=== PATIENT | male | born 1970 | race African-American/Black ===

== ENCOUNTER 2019-06-17 09:48 | Emergency (ER) | payer BC ==
[2019-06-17 10:08] VITALS: BP 137/80
--- NOTE | 2019-06-17 10:24 | UC ---
Throat Pain/Nasal Kel HPI - HPI Summary HPI Summary: patient started 2 weeks ago with cold symps, is taking claritin D qd without relief. over past 48hours sinus pain, congestion has worsened, and L ear painful has thick PND, coughing over past 2-3 days and has had to use albuterol inhaler. - History of Current Complaint Chief Complaint: UCRespiratory Stated Complaint: URI Time Seen by Provider: 06/17/19 09:53 Hx Obtained From: Patient Onset/Duration: Gradual Onset Severity: Moderate Pain Intensity: 6 Cough: Nonproductive Associated Signs & Symptoms: Positive: Sinus Discomfort, Nasal Discharge. Negative: Hoarseness, Fever Related History: Seasonal Allergies - Allergies/Home Medications Allergies/Adverse Reactions: Allergies Allergy/AdvReac Type Severity Reaction Status Date / Time codeine Allergy See Comment Verified 06/17/19 10:08 Home Medications: Home Medications Albuterol HFA INHALER* [Ventolin HFA Inhaler*] 1 puff INH Q4H PRN 06/17/19 [ History Confirmed 06/17/19] Fluticasone Furoate [Flonase Sensimist] 27.5 mcg NA DAILY 06/17/19 [History Confirmed 06/17/19] PMH/Surg Hx/FS Hx/Imm Hx Previously Healthy: Yes Respiratory History: Asthma - Surgical History Surgical History: Yes Surgery Procedure, Year, and Place: t&a,tennis elbow release lt arm, benign cyst removed from rt chest nipple area. - Family History Known Family History: Positive: None - Social History Occupation: Employed Full-time Lives: With Family Alcohol Use: Occasionally Substance Use Type: None Smoking Status (MU): Never Smoked Tobacco Review of Systems All Other Systems Reviewed And Are Negative: Yes Constitutional: Positive: Negative Skin: Positive: Negative. Negative: Rash Eyes: Positive: Negative ENT: Positive: Ear Ache, Nasal Discharge, Sinus Congestion, Sinus Pain/ Tenderness. Negative: Sore Throat Respiratory: Positive: Cough. Negative: Shortness Of Breath Cardiovascular: Positive: Negative. Negative: Chest Pain Gastrointestinal: Positive: Negative Neurological: Positive: Negative. Negative: Headache Psychological: Positive: Negative Is Patient Immunocompromised?: No Physical Exam Triage Information Reviewed: Yes Appearance: Well-Appearing, No Pain Distress, Well-Nourished Vital Signs: Initial Vital Signs Temp 98.5 F 06/17/19 10:02 Pulse 75 06/17/19 10:02 Resp 18 06/17/19 10:02 BP 137/80 06/17/19 10:02 Pulse Ox 98 06/17/19 10:02 Vital Signs Reviewed: Yes Eyes: Positive: Conjunctiva Clear ENT: Positive: Pharynx normal, Nasal congestion, TM dull, Sinus tenderness. Negative: Hoarse voice Neck exam: Normal Neck: Positive: Supple, Nontender Respiratory Exam: Normal Respiratory: Positive: Lungs clear Cardiovascular Exam: Normal Cardiovascular: Positive: RRR Neurological Exam: Normal Neurological: Positive: Alert Psychological Exam: Normal Skin Exam: Normal Skin: Negative: Rashes Throat Pain/Nasal Course/Dx - Differential Dx/Diagnosis Differential Diagnosis/HQI/PQRI: Influenza, Sinusitis, Tonsillitis, URI Provider Diagnosis: Sinusitis Discharge ED - Sign-Out/Discharge Documenting (check all that apply): Patient Departure All imaging exams completed and their final reports reviewed: No Studies - Discharge Plan Condition: Good Disposition: HOME Prescriptions: Amoxicillin/Clavulanate TAB* [Augmentin TAB 875*] 875 mg PO BID #20 tab Patient Education Materials: Sinusitis (ED) Referrals: No Primary Care Phys,NOPCP [Primary Care Provider] - Additional Instructions: drink plenty of fluids and rest start antibiotic today and take as directed may still use Claritin D and ibuprofen return if no better 48hours - Billing Disposition and Condition Condition: GOOD Disposition: Home
== END 2019-06-17 10:30 | disposition home or self-care (01) ==
LOC: UCEAST 09:48
DX: J32.9 Chronic sinusitis, unspecified (principal); J45.909 Unspecified asthma, uncomplicated; R05 Cough; Z79.51 Long term (current) use of inhaled steroids; Z88.5 Allergy status to narcotic agent
CPT/HCPCS: 99202; G0463

== ENCOUNTER 2019-06-18 07:26 | Emergency (ER) | payer BC ==
[2019-06-18 07:38] VITALS: BP 140/75
--- NOTE | 2019-06-18 08:01 | UC ---
Lower Extremity/Ankle HPI - HPI Summary HPI Summary: Patient is a 48-year-old male with history of gout and asthma presenting with for R foot and R lower leg pain that he states he began to feel subtly yesterday afternoon but then was woken up at 4 AM this morning with severe pain that he states is worsening as the morning progresses. States he is hardly able to ambulate or apply any weight to that foot or leg. Describes the foot pain as sharp and stabbing that radiates up his calf and becomes an aching tightness. Patient states he does not know how else to describe it because he has not had anything like this before. Patient rates pain 10/10. Denies any injury or trauma. States all he did yesterday was "lie around." Denies swelling and bruising. Denies color change or rash. Denies numbness and tingling. Denies h/o DVT or blood clots. Patient states he was seen here a few days ago and is currently taking Augmentin for URI. Denies SOB and difficulty breathing. Denies chest pain. Patient has history of gout but states "this is nothing like gout." No other daily meds. - History of Current Complaint Chief Complaint: UCLowerExtremity Stated Complaint: FOOT AND LEG PAIN Onset/Duration: Gradual Onset, Lasting Hours Severity Initially: Mild Severity Currently: Severe Pain Intensity: 10 Pain Scale Used: 0-10 Numeric Aggravating Factor(s): Standing, Ambulation Alleviating Factor(s): Nothing - Allergies/Home Medications Allergies/Adverse Reactions: Allergies Allergy/AdvReac Type Severity Reaction Status Date / Time codeine Allergy See Comment Verified 06/18/19 08:53 PMH/Surg Hx/FS Hx/Imm Hx Respiratory History: Asthma - Surgical History Surgical History: Yes Surgery Procedure, Year, and Place: t&a,tennis elbow release lt arm, benign cyst removed from rt chest nipple area. - Family History Known Family History: Positive: None - Social History Alcohol Use: Occasionally Substance Use Type: None Smoking Status (MU): Never Smoked Tobacco Review of Systems All Other Systems Reviewed And Are Negative: Yes Constitutional: Positive: Negative. Negative: Fever, Chills, Fatigue Skin: Positive: Negative. Negative: Rash, Bruising ENT: Positive: Sinus Congestion Respiratory: Positive: Negative. Negative: Shortness Of Breath, Cough Cardiovascular: Positive: Negative. Negative: Palpitations, Chest Pain Gastrointestinal: Positive: Negative. Negative: Abdominal Pain, Vomiting, Nausea Motor: Positive: Negative Neurovascular: Positive: Negative Musculoskeletal: Positive: Arthralgia, Myalgia. Negative: Decreased ROM, Edema Neurological: Negative: Paresthesia, Numbness Physical Exam Triage Information Reviewed: Yes Appearance: Well-Nourished, Pain Distress, Obese Vital Signs: Initial Vital Signs Temp 99.1 F 06/18/19 07:35 Pulse 91 06/18/19 07:35 Resp 18 06/18/19 07:35 BP 140/75 06/18/19 07:35 Pulse Ox 96 06/18/19 07:35 Vital Signs Reviewed: Yes Eyes: Positive: Conjunctiva Clear ENT: Positive: Hearing grossly normal Neck: Positive: Supple Respiratory Exam: Normal Respiratory: Positive: Lungs clear, Normal breath sounds, No respiratory distress Cardiovascular: Positive: Pulses Normal - strong pedal and ankle pulses b/l, Brisk Capillary Refill Musculoskeletal: Positive: Strength Intact, ROM Intact, No Edema, Other: - severe tenderness with dorsiflexion of R foot and palpation of R medial foot. no calf tenderness Neurological Exam: Other - sensation grossly intact Neurological: Positive: Alert Psychological: Positive: Age Appropriate Behavior Skin Exam: Normal - no erythema or ecchymosis Lower Extremity Course/Dx - Course Course Of Treatment: I discussed with the patient that it is unclear what is causing his severe foot and leg pain. I encouraged the patient to go to the ED for further evaluation and lab work. Patient voiced understanding and agreed to have his drive him to the emergency room after leaving here. Patient VS normal and he is stable upon departure. Discussed patient with Dr. Funes who agreed with the plan. - Differential Dx/Diagnosis Differential Diagnosis/HQI/PQRI: DVT, Gout, Infection, Sprain, Strain Provider Diagnosis: Right leg pain, Right foot pain Discharge ED - Sign-Out/Discharge Documenting (check all that apply): Patient Departure All imaging exams completed and their final reports reviewed: No Studies - Discharge Plan Condition: Stable Disposition: HOME-RECOMMEND TO ED Additional Instructions: The provider that evaluated you today thinks that you need additional testing that can be completed the emergency department. It is recommended that you go directly to emergency department for further evaluation. This evaluation included blood work or imaging. This testing will be directed and decided by the provider that evaluates you at the emergency department. If pain becomes worse, you feel lightheaded, you have uncontrolled vomiting, or you have any other concerns contact 911. - Billing Disposition and Condition Condition: STABLE Disposition: Home-Recommend to ED - Attestation Statements Provider Attestation: Per institutional requirements, I have reviewed the chart, however, I was not consulted specifically or made aware of this patient by the midlevel provider. I did not personally evaluate, interact with , or disposition this patient.
== END 2019-06-18 08:33 | disposition home health service (06) ==
LOC: UCEAST 07:26
DX: M25.571 Pain in right ankle and joints of right foot (principal); M79.661 Pain in right lower leg; J45.909 Unspecified asthma, uncomplicated; M79.10 Myalgia, unspecified site; Z88.5 Allergy status to narcotic agent
CPT/HCPCS: 99212; G0463

== ENCOUNTER 2019-06-18 08:46 | Emergency (ER) | payer BC ==
[2019-06-18] MEDS ORDERED: Ketorolac *IM* INJ* 60 MG/2 ML VIAL IM ONE (11:01)
[2019-06-18] MEDS ORDERED: oxyCODONE/Acetamin 5/325 MG* TAB PO ONE (11:01)
--- NOTE | 2019-06-18 11:03 | ED ---
Lower Extremity - HPI Summary HPI Summary: Patient is a 48-year-old male who presents emergency department for right lower leg pain Times several days. Patient does not recall any injuries or falls. [facility] and was referred to the ER for further evaluation given severity of pain. Patient notes history of gout but states symptoms do not seem similar. Patient denies chest pain, shortness of breath, fever. Symptoms are mild to moderate in severity. Walking makes symptoms worse. Nothing makes symptoms better. - History of Current Complaint Chief Complaint: EDExtremityLower Stated Complaint: RIGHT FOOT PAIN Time Seen by Provider: 06/18/19 10:48 Hx Obtained From: Patient Pain Intensity: 10 - Allergies/Home Medications Allergies/Adverse Reactions: Allergies Allergy/AdvReac Type Severity Reaction Status Date / Time codeine Allergy See Comment Verified 06/18/19 08:53 Home Medications: Home Medications Amoxicillin/Clavulanate TAB* [Augmentin TAB 875*] 875 mg PO BID 06/18/19 [ History Confirmed 06/18/19] Cetirizine* [ZyrTEC 10 MG TAB*] 10 mg PO DAILY 06/18/19 [History Confirmed 06/18] Indomethacin CAP* [Indocin CAP*] 50 mg PO TID PRN 06/18/19 [History Confirmed ] PMH/Surg Hx/FS Hx/Imm Hx Previously Healthy: Yes Respiratory History: Reports: Hx Asthma - Surgical History Surgery Procedure, Year, and Place: t&a,tennis elbow release lt arm, benign cyst removed from rt chest nipple area. Infectious Disease History: No Infectious Disease History: Denies: Traveled Outside the [place] in Last 30 Days - Family History Known Family History: Positive: None - Social History Lives: With Family Alcohol Use: Occasionally Substance Use Type: Reports: None Smoking Status (MU): Never Smoked Tobacco Review of Systems Constitutional: Negative Negative: Fever Cardiovascular: Negative Negative: Chest Pain Respiratory: Negative Negative: Shortness Of Breath Positive: Other - Right low leg pain. Skin: Negative Negative: Rash, Bruising Neurological: Negative Negative: Weakness, Paresthesia, Numbness All Other Systems Reviewed And Are Negative: Yes Physical Exam Triage Information Reviewed: Yes Vital Signs On Initial Exam: Initial Vitals Temp Pulse Resp BP Pulse Ox 98.5 F 87 16 142/96 98 06/18/19 08:50 06/18/19 08:50 06/18/19 08:50 06/18/19 08:50 06/18/19 08:50 Vital Signs Reviewed: Yes Appearance: Positive: Well-Appearing - Pt. sitting up in bed in NAD. C/O pain when moving right leg. Skin: Positive: Warm, Dry Head/Face: Positive: Normal Head/Face Inspection Eyes: Positive: Normal, EOMI Neck: Positive: Supple Musculoskeletal: Positive: Other - Good right pedal pulse. Diffuse pain over right ankle. Slight decreased ROM of ankle secondary to pain. No wounds or redness. Slight increase in warmth. Calf tenderness noted as well. No edema to leg. Compartments are soft. Neurological: Positive: Normal, CN Intact II-III Psychiatric: Positive: Affect/Mood Appropriate Procedures - Sedation Patient Received Moderate/Deep Sedation with Procedure: No Diagnostics - Vital Signs Vital Signs Temp Pulse Resp BP Pulse Ox 06/18/19 10:38 98.9 F 80 18 141/93 100 06/18/19 08:50 98.5 F 87 16 142/96 98 - Laboratory Result Diagrams: 06/18/19 11:13 06/18/19 11:13 Lab Statement: Any lab studies that have been ordered have been reviewed, and results considered in the medical decision making process. Lower Extremity Course/Dx - Course Course Of Treatment: Patient presenting with right calf and ankle pain. He is afebrile. Exam is relatively unremarkable. Compartments are soft. Good pedal pulse. Basic labs, x-ray ultrasound obtained for further evaluation. Patient was given a dose of Toradol and a Percocet for pain. Would work is unremarkable including normal WBC, CRP, uric acid. Ultrasound is negative for DVT per radiology. X-ray shows calcaneus spur without other acute findings, reading per radiology. On reexamination patient is resting comfortably cleared unclear of pain etiology. Patient notes leg is too painful to bear full weight , Will place on crutches and air splint for comfort. Advised anti- inflammatories, ice and elevation. Patient notes he recently moved from [place] but is still seeing his family doctor in [place]. Advised to call tomorrow for close follow-up appointment and orthopedic referral if pain persists. Return to the ER symptoms change or worsen. Patient understands and agrees with plan. Work excuse given. - Diagnoses Differential Diagnosis/HQI/PQRI: Positive: Bursitis, Contusion, DVT, Fracture ( Closed), Gout, Infection, Sprain, Strain, Tendonitis Provider Diagnoses: Leg pain Discharge ED - Sign-Out/Discharge Documenting (check all that apply): Patient Departure - Discharge Plan Condition: Good Disposition: HOME Prescriptions: Naproxen [Naproxen 500 mg tab] 500 mg PO BID #20 tablet Patient Education Materials: Ankle Sprain (ED), Heel Spur (ED) Forms: *Work Release Referrals: Reagan Valdes MD [Medical Doctor] - Jacky Burnham MD [Primary Care Provider] - Additional Instructions: Schedule a close follow up appointment with PCP and orthopedic clinic for further evaluation Ice and elevate Naproxen as directed Return to ER if symptoms change or worsen - Billing Disposition and Condition Condition: GOOD Disposition: Home
[2019-06-18 11:22] LABS: ABS Basophils 0.1 10^3/ul (0-0.2); ABS Eosinophils 0.2 10^3/ul (0-0.6); ABS Lymphocytes 1.7 10^3/ul (1.0-4.8); ABS Monocytes 0.7 10^3/ul (0-0.8); ABS Neutrophils 4.1 10^3/ul (1.5-7.7); Eosinophil % 2.4 %; Hematocrit 47 % (42-52); Hemoglobin 15.6 g/dL (14.0-18.0); Lymphocyte % 25.2 %; Mean Corpuscular HGB Conc 33 g/dL (31-36); Mean Corpuscular Hemoglobin 29 pg (27-31); Mean Corpuscular Volume 86 fL (80-94); Mean Platelet Volume 7.2 fL (7.4-10.4); Nucleated Red Blood Cells % 0.1; Platelet Count 259 10^3/uL (150-450); Red Blood Count 5.45 10^6 /uL (4.18-5.48); Red Cell Distribution Width 15 % (10-15); White Blood Count 6.7 10^3/uL (3.5-10.8)
[2019-06-18 11:28] LABS: INR 0.97 (0.82-1.09)
[2019-06-18 11:41] LABS: Albumin 4.2 g/dL (3.2-5.2); Albumin/Globulin Ratio 1.4 (1-3); BUN/Creatinine Ratio 9.8 (8-20); Calcium 9.6 mg/dL (8.6-10.3); EGFR African American 105.4 (>60); EGFR Non-African American 87.1 (>60); Potassium 3.9 mmol/L (3.5-5.0); Total Bilirubin 0.3 mg/dL (0.2-1.0); Total Protein 7.2 g/dL (6.4-8.9); Uric Acid 7.6 mg/dL (4.4-7.6)
[2019-06-18 15:27] VITALS: BP 149/81
== END 2019-06-18 15:25 | disposition home or self-care (01) ==
LOC: ED 08:46
DX: M79.604 Pain in right leg (principal); J45.909 Unspecified asthma, uncomplicated; Z79.899 Other long term (current) drug therapy; Z88.5 Allergy status to narcotic agent
CPT/HCPCS: 36415; 80053; 84550; 85025; 85610; 86140; 96372; 99282; A9270-GY; J1885

== ENCOUNTER 2020-04-18 15:21 | Observation (INO) ==
[2020-04-18] MEDS ORDERED: Iohexol 350 (CONTRAST) 500 ML MDV IV ONE (17:35)
[2020-04-18 17:36] LABS: Albumin 3.9 g/dL (3.2-5.2); Albumin/Globulin Ratio 1.3 (1-3); Calcium 9.2 mg/dL (8.6-10.3); EGFR African American 95.3 (>60); EGFR Non-African American 78.8 (>60); Globulin 2.9 g/dL (2-4); Potassium 3.9 mmol/L (3.5-5.0); Total Bilirubin 0.4 mg/dL (0.2-1.0); Total Protein 6.8 g/dL (6.4-8.9)
[2020-04-18 19:04] LABS: ABS Eosinophils 0.1 10^3/ul (0-0.6); ABS Lymphocytes 2.2 10^3/ul (1.0-4.8); ABS Monocytes 0.9 10^3/ul (0-0.8); ABS Neutrophils 2.2 10^3/ul (1.5-7.7); Eosinophil % 2.6 %; Hematocrit 44 % (42-52); Hemoglobin 14.9 g/dL (14.0-18.0); Lymphocyte % 39.7 %; Mean Corpuscular HGB Conc 34 g/dL (31-36); Mean Corpuscular Hemoglobin 30 pg (27-31); Mean Corpuscular Volume 87 fL (80-94); Mean Platelet Volume 8.1 fL (7.4-10.4); Platelet Count 245 10^3/uL (150-450); Red Blood Count 5.04 10^6 /uL (4.18-5.48); Red Cell Distribution Width 15 % (10-15); White Blood Count 5.5 10^3/uL (3.5-10.8)
[2020-04-18 20:48] LABS: C Reactive Protein 11.61 mg/L (<8.01)
[2020-04-18] MEDS ORDERED: Ondansetron 4 mg VIAL 2 MG/ML 2 ml VIAL IV PRN (21:11)
[2020-04-18] MEDS ORDERED: Albuterol 2.5mg/3 ml (0.083%) NEB.SOLN INH PRN (21:16)
[2020-04-18] MEDS: Enoxaparin 40 MG/0.4 ML SYR SUBCUT SCH (22:10)
[2020-04-18] MEDS ORDERED: Enoxaparin 40 MG/0.4 ML SYR ONE (23:02)
[2020-04-19] MEDS: Fluticasone NASAL SPRAY 50MCG 16 gm SPRAY BTL INTRANASAL SCH (08:29)
[2020-04-19] MEDS: Enoxaparin 40 MG/0.4 ML SYR SUBCUT SCH (21:37)
[2020-04-20 06:38] LABS: ABS Lymphocytes 1.1 10^3/ul (1.0-4.8); ABS Monocytes 0.9 10^3/ul (0-0.8); ABS Neutrophils 6.8 10^3/ul (1.5-7.7); Hematocrit 44 % (42-52); Hemoglobin 14.7 g/dL (14.0-18.0); Mean Corpuscular HGB Conc 34 g/dL (31-36); Mean Corpuscular Hemoglobin 29 pg (27-31); Mean Corpuscular Volume 87 fL (80-94); Mean Platelet Volume 7.6 fL (7.4-10.4); Nucleated Red Blood Cells % 0.1; Platelet Count 238 10^3/uL (150-450); Red Blood Count 5.03 10^6 /uL (4.18-5.48); Red Cell Distribution Width 15 % (10-15); White Blood Count 8.8 10^3/uL (3.5-10.8)
[2020-04-20 06:56] LABS: Calcium 9.4 mg/dL (8.6-10.3); EGFR African American 102.4 (>60); EGFR Non-African American 84.6 (>60); Potassium 4.1 mmol/L (3.5-5.0)
[2020-04-20] MEDS: Fluticasone NASAL SPRAY 50MCG 16 gm SPRAY BTL INTRANASAL SCH (09:17)
[2020-04-20] MEDS: Enoxaparin 40 MG/0.4 ML SYR SUBCUT SCH (21:35)
[2020-04-21 06:41] LABS: ABS Lymphocytes 2.3 10^3/ul (1.0-4.8); ABS Neutrophils 8.3 10^3/ul (1.5-7.7); Eosinophil % 0.3 %; Hematocrit 40 % (42-52); Hemoglobin 13.7 g/dL (14.0-18.0); Lymphocyte % 19.9 %; Mean Corpuscular HGB Conc 34 g/dL (31-36); Mean Corpuscular Hemoglobin 29 pg (27-31); Mean Corpuscular Volume 86 fL (80-94); Mean Platelet Volume 7.5 fL (7.4-10.4); Platelet Count 222 10^3/uL (150-450); Red Blood Count 4.71 10^6 /uL (4.18-5.48); Red Cell Distribution Width 14 % (10-15); White Blood Count 11.7 10^3/uL (3.5-10.8)
[2020-04-21 06:56] LABS: BUN/Creatinine Ratio 13.5 (8-20); Calcium 9.1 mg/dL (8.6-10.3); EGFR African American 99.9 (>60); EGFR Non-African American 82.6 (>60); Potassium 4.1 mmol/L (3.5-5.0)
[2020-04-21] MEDS: Fluticasone NASAL SPRAY 50MCG 16 gm SPRAY BTL INTRANASAL SCH (07:36)
[2020-04-21 07:54] VITALS: BP 135/79
== END 2020-04-21 14:00 | disposition home or self-care (01) ==
LOC: MEDTELE 15:21 → ED 15:21 → MEDTELE 22:44
PROVIDERS: ADMIT Nurse Practitioner Adult Health; ATTEND Internal Medicine

== ENCOUNTER 2021-03-31 06:05 | Inpatient (IN) ==
[~2021-03-31 06:05] MED LIST: Buffered Lidocaine 1% SYRIN 1 ml INTRADERM ONE; DiMENhydriNATE IV 50 mg/ml 1 ml VIAL IV PUSH ONE; HYDROcodone/ACETAMIN 5/325 mg TAB PO PRN; Lactated Ringers 1000 ml BAG 1,000 ML IV SCH; Metoclopramide 5 MG/ML VIAL (10 mg) IV PRN; Naloxone 0.4 mg VIAL 0.4 mg/ml 1 ml VIAL IV PRN; Ondansetron 4 mg VIAL 2 MG/ML 2 ml VIAL IV PRN
[2021-03-31] MEDS ORDERED: Clindamycin 900 MG/D5W BAG 900 MG/50 ML BAG IVPB ONE (06:14)
[2021-03-31] MEDS ORDERED: Lidocaine 1% w EPI 1:200,000 SDV 30 ML VIAL ONE (07:04)
[2021-03-31] MEDS ORDERED: ceFAZolin VIAL VIAL ONE (07:05)
[2021-03-31] MEDS ORDERED: fentaNYL 100 mcg/2 ml 50 MCG/ML VIAL ONE ×4 (07:15→14:02)
[2021-03-31] MEDS ORDERED: Ketamine HCL 50 mg/ml 10 ml VIAL (500 MG) ONE (07:15)
[2021-03-31] MEDS ORDERED: Midazolam 2 mg/2 ml VIAL 1 mg/ml 2 ml VIAL (2 mg) ONE (07:15)
[2021-03-31] MEDS ORDERED: Phenylephrine IV 10 MG/ML 1 ml VIAL ONE (07:16)
[2021-03-31] MEDS ORDERED: Propofol 10 MG/ML 20 ML BTL ONE (07:16)
[2021-03-31] MEDS ORDERED: Ondansetron 4 mg VIAL 2 MG/ML 2 ml VIAL ONE (07:16)
[2021-03-31] MEDS ORDERED: Glycopyrrolate IV 0.2 MG/ML 1 ML VIAL ONE (07:16)
[2021-03-31] MEDS ORDERED: Lidocaine 2% PF 5 ML VIAL ONE (07:16)
[2021-03-31] MEDS ORDERED: Dexamethasone IV 4 MG/ML VIAL 1 ml VIAL ONE (07:16)
[2021-03-31] MEDS ORDERED: Rocuronium 50 mg VIAL 10 mg/ml 5 ml VIAL (50 mg) ONE (07:17)
[2021-03-31] MEDS ORDERED: Succinylcholine 200 mg VIAL 20 mg/ml 10 ml VIAL (200 mg) ONE (07:17)
[2021-03-31] MEDS ORDERED: Remifentanil 2 MG VIAL ONE ×3 (07:23→11:41)
[2021-03-31] MEDS ORDERED: Propofol 10 mg/ml 100 ML BTL 0 ML ONE (07:39)
[2021-03-31] MEDS ORDERED: Clindamycin 300 MG/D5W BAG 300 MG/50 ML BAG IV ONE (09:00)
[2021-03-31] MEDS ORDERED: EPHEDrine (Pressors) 50 MG/ML VIAL ONE (09:06)
[2021-03-31] MEDS ORDERED: Propofol 10 mg/ml 100 ML BTL 400 ML ONE (09:54)
[2021-03-31] MEDS ORDERED: Ondansetron 4 mg VIAL 2 MG/ML 2 ml VIAL IV PRN (12:15)
[2021-03-31] MEDS ORDERED: Polyethylene Glycol 3350 17 GM PACKET PO PRN (12:21)
[2021-03-31] MEDS ORDERED: Albuterol 2.5mg/3 ml (0.083%) NEB.SOLN INH PRN (12:21)
[2021-03-31] MEDS ORDERED: Benzocaine/Menthol LOZ PO PRN (12:21)
[2021-03-31] MEDS ORDERED: Albuterol HFA INHALER 8 gm MDI INH PRN (12:24)
[2021-03-31] MEDS ORDERED: NS 0.9% 1000 ml BAG 1,000 ML IV SCH (12:30)
[2021-03-31] MEDS: fentaNYL 100 mcg/2 ml 50 MCG/ML VIAL IV PRN ×5 (12:52→14:03)
[2021-03-31] MEDS ORDERED: Acetaminophen IV 1 GM/100ML 100 ML IV ONE (13:01)
[2021-03-31] MEDS: Acetaminophen IV 1 GM/100ML 100 ML IV SCH ×2 (13:03→20:02)
[2021-03-31] MEDS ORDERED: HYDROcodone/ACETAMIN 5/325 mg TAB ONE (13:33)
[2021-03-31] MEDS: Morphine 2 MG/ML SYRINGE IV PRN ×3 (17:31→22:44)
[2021-03-31] MEDS: Nicotine PATCH 21 MG/24 HR PATCH TRANSDERM SCH (17:32)
[2021-03-31] MEDS: Dexamethasone IV 4 MG/ML VIAL 1 ml VIAL IV SLOW PU SCH ×2 (17:32→22:41)
[2021-03-31] MEDS: ceFAZolin 2 GM in NS PREMIX 2 GM/100 ML BAG IVPB SCH (17:51)
[2021-03-31] MEDS: Magnesium Hydroxide LIQ 30 ML UDC PO SCH (20:03)
[2021-04-01] MEDS: ceFAZolin 2 GM in NS PREMIX 2 GM/100 ML BAG IVPB SCH ×2 (01:33→08:56)
[2021-04-01] MEDS: Acetaminophen IV 1 GM/100ML 100 ML IV SCH (04:45)
[2021-04-01] MEDS: Dexamethasone IV 4 MG/ML VIAL 1 ml VIAL IV SLOW PU SCH ×2 (05:48→15:46)
[2021-04-01] MEDS: Magnesium Hydroxide LIQ 30 ML UDC PO SCH (08:56)
[2021-04-01] MEDS: Nicotine PATCH 21 MG/24 HR PATCH TRANSDERM SCH (08:56)
[2021-04-01 15:58] VITALS: BP 146/80
== END 2021-04-01 17:37 | disposition home or self-care (01) | DRG 321 ==
LOC: AA 06:05 → SSU 14:49
PROVIDERS: ADMIT Neurological Surgery; ATTEND Neurological Surgery